=== PATIENT | female | born 1935 | race Caucasian/White ===

== ENCOUNTER 2019-12-14 06:39 | Day surgery (SDC) | payer MEDICAID, SELFPAY ==
[~2019-12-14] VITALS: Ht 152.4 cm; Wt 68.0 kg
== END 2019-12-14 07:31 | disposition home or self-care (01) ==
LOC: MDS 06:39 → MMU 06:43 → MDS 07:31
PROVIDERS: ATTEND Internal Medicine Gastroenterology
DX: Z20.828 Contact with and (suspected) exposure to other viral communicable diseases (principal); K62.5 Hemorrhage of anus and rectum
CPT/HCPCS: U0003